=== PATIENT | male | born 1995 | race Caucasian/White ===

== ENCOUNTER 2019-03-28 19:49 | Emergency (ER) | payer OTHER ==
[~2019-03-28] VITALS: Ht 177.8 cm; Wt 165.0 kg
[~2019-03-28 19:49] MED LIST: HYDR50CA PO
[2019-03-28] MEDS ORDERED: IV NORMAL SALINE 1,000ML 1,000 ML IV SCH (21:02)
--- NOTE | 2019-03-28 21:13 | PHYS DOC ---
Past History Past Medical History: Anxiety Past Surgical History: Tonsillectomy Smoking: Non-smoker Alcohol Use: None Drug Use: None Adult General Chief Complaint Chief Complaint: ABDOMINAL PAIN HPI HPI Patient is a 23 year old male who presents with complaint of nausea, vomiting, and upper abdominal pain. The patient states that his symptoms at approximately 1900 earlier this evening. Notes that he felt sick to his stomach and had an episode of vomiting. Noted what appeared to be dark red in his vomit. Denies any associated fever. Started having burning upper abdominal pain shortly after vomiting which wanted him to come to the emergency department for further evaluation. Patient states that he has had recurrent upper abdominal pain symptoms over the past several months. Has not followed with a physician for diagnosis of the cause of symptoms but states that he suspects that he may have stomach ulcers. Not currently taking any daily medication but states that he has used Prilosec off and on over the past several months as well as use of antacids as needed. Has not noticed any dark tarry stools. Rates his pain currently is 6 out of 10 on my evaluation. Review of Systems Review of Systems Constitutional: Denies fever or chills [] Eyes: Denies change in visual acuity, redness, or eye pain [] HENT: Denies nasal congestion or sore throat [] Respiratory: Denies cough or shortness of breath [] Cardiovascular: Denies chest pain or edema[] GI: Abdominal pain, nausea, vomiting, hematemesis[] : Denies dysuria or hematuria [] Musculoskeletal: Denies back pain or joint pain [] Integument: Denies rash or skin lesions [] Neurologic: Denies headache, focal weakness or sensory changes [] All other systems were reviewed and found to be within normal limits, except as documented in this note. Current Medications Current Medications Current Medications Medications (Trade) Dose Ordered Sig/Isaías Start Time Stop Time Status Last Admin Dose Admin Famotidine (Pepcid Vial) 20 mg 1X ONCE 03/28/19 21:15 03/28/19 21:16 Multi-Ingredient Mouthwash/Gargle (Gi Cocktail) 20 ml 1X ONCE 03/28/19 21:15 03/28/19 21:16 Ondansetron HCl (Zofran) 4 mg 1X ONCE 03/28/19 21:15 03/28/19 21:16 Sodium Chloride 1,000 ml @ 1,000 mls/hr Q1H 03/28/19 21:02 03/28/19 22:01 Allergies Allergies Allergies Coded Allergies Type Severity Reaction Last Updated Verified No Known Drug Allergies 04/19/14 No Physical Exam Physical Exam Constitutional: Alert, afebrile, appears ill but in no acute distress. [] HENT: Normocephalic, atraumatic, bilateral external ears normal, oropharynx moist, no oral exudates, nose normal. [] Eyes: PERRLA, EOMI, conjunctiva normal, no discharge. [] Neck: Normal range of motion, no tenderness, supple, no stridor. [] Cardiovascular:Heart rate regular rhythm, no murmur [] Lungs & Thorax: Bilateral breath sounds clear to auscultation [] Abdomen: Bowel sounds normal, soft, mild epigastric tenderness to palpation, no guarding or rebound tenderness, no masses, no pulsatile masses. [] Skin: Warm, dry, no erythema, no rash. [] Back: No tenderness, no CVA tenderness. [] Extremities: No tenderness, no cyanosis, no clubbing, ROM intact, no edema. [] Neurologic: Alert and oriented X 3, normal motor function, normal sensory function, no focal deficits noted. [] Current Patient Data Vital Signs Vital Signs Date Time Temp Pulse Resp B/P (MAP) Pulse Ox O2 Delivery O2 Flow Rate FiO2 03/28/19 19:55 98.8 88 20 97 Room Air Lab Results Laboratory Tests Test 03/28/19 20:05 03/28/19 20:25 Urine Collection Type Unknown Urine Color Yellow Urine Clarity Clear Urine pH 7.0 Urine Specific [place] 1.015 Urine Protein Neg Urine Glucose (UA) Neg mg/dL Urine Ketones (Stick) Neg mg/dL Urine Blood Neg Urine Nitrite Neg Urine Bilirubin Neg Urine Urobilinogen Dipstick 0.2 mg/dL Urine Leukocyte Esterase Neg Urine RBC 0 /HPF Urine WBC Occ /HPF Urine Squamous Epithelial Cells Occ /LPF Urine Transitional Epithelial Cells Occ /LPF Urine Bacteria Few /HPF White Blood Count 8.4 x10^3/uL Red Blood Count 5.63 x10^6/uL Hemoglobin 17.2 g/dL Hematocrit 50.0 % Mean Corpuscular Volume 89 fL Mean Corpuscular Hemoglobin 31 pg Mean Corpuscular Hemoglobin Concent 34 g/dL Red Cell Distribution Width 13.1 % Platelet Count 186 x10^3/uL Neutrophils (%) (Auto) 63 % Lymphocytes (%) (Auto) 29 % Monocytes (%) (Auto) 6 % Eosinophils (%) (Auto) 1 % Basophils (%) (Auto) 1 % Neutrophils # (Auto) 5.3 x10^3uL Lymphocytes # (Auto) 2.4 x10^3/uL Monocytes # (Auto) 0.5 x10^3/uL Eosinophils # (Auto) 0.1 x10^3/uL Basophils # (Auto) 0.0 x10^3/uL Sodium Level 143 mmol/L Potassium Level 3.9 mmol/L Chloride Level 105 mmol/L Carbon Dioxide Level 28 mmol/L Anion Gap 10 Blood Urea Nitrogen 9 mg/dL Creatinine 1.0 mg/dL Estimated GFR (Cockcroft-Gault) 94.3 BUN/Creatinine Ratio 9 Glucose Level 113 mg/dL Calcium Level 9.4 mg/dL Total Bilirubin 0.4 mg/dL Aspartate Amino Transf (AST/SGOT) 18 U/L Alanine Aminotransferase (ALT/SGPT) 24 U/L Alkaline Phosphatase 55 U/L Total Protein 7.8 g/dL Albumin 4.1 g/dL Albumin/Globulin Ratio 1.1 Lipase 81 U/L Current Medications Medications (Trade) Dose Ordered Sig/Isaías Route PRN Reason Start Time Stop Time Status Last Admin Dose Admin Sodium Chloride 1,000 ml @ 1,000 mls/hr Q1H IV 03/28/19 21:02 03/28/19 22:01 DC 03/28/19 22:45 Ondansetron HCl (Zofran) 4 mg 1X ONCE IV 03/28/19 21:15 03/28/19 21:16 DC 03/28/19 22:45 Famotidine (Pepcid Vial) 20 mg 1X ONCE IVP 03/28/19 21:15 03/28/19 21:16 DC 03/28/19 22:45 Multi-Ingredient Mouthwash/Gargle (Gi Cocktail) 20 ml 1X ONCE PO 03/28/19 21:15 03/28/19 21:16 DC 03/28/19 22:45 EKG EKG Not performed[] Radiology/Procedures Radiology/Procedures Not performed[] Course & Med Decision Making Course & Med Decision Making Pertinent Labs and Imaging studies reviewed. (See chart for details) Patient was given IV fluids, Pepcid, Zofran, and oral GI cocktail. My evaluation after treatment reveals significant improvement patient's reported symptoms. Blood work is unremarkable at this time. I do suspect the patient has a spectrum of acid reflux disease leading to his recurrent symptoms. Explain that for further workup and diagnosis, the patient will need evaluation by facilities maintenance manager as outpatient. Referred to Dr. Moreno. Advised follow- up with primary doctor in the next 3-5 days for reevaluation. Prescribed Pepcid twice daily and Zofran for outpatient treatment. Advised return to emergency department for any worsening symptoms. Patient was understanding and in agreement with treatment plan. Dragon Disclaimer Dragon Disclaimer This electronic medical record was generated, in whole or in part, using a voice recognition dictation system. Departure Departure: Impression: Primary Impression: Abdominal pain Additional Impression: Nausea & vomiting Disposition: 01 HOME, SELF-CARE Condition: IMPROVED Referrals: [facility] (PCP) ROCÍO MORENO MD Patient Instructions: Abdominal Pain (Nonspecific), Nausea and Vomiting Additional Instructions: Your examination today thankfully shows no evidence of an acute surgical or life-threatening cause of your symptoms. It is suspected that you may suffer from chronic acid reflux or gastritis disease. It is recommended that you follow-up with a facilities maintenance manager to have further testing done in order to diagnose this condition. Follow-up with your primary doctor in the next 3-5 days for reevaluation. Return to the emergency department for any worsening symptoms. Scripts Ondansetron (ONDANSETRON ODT) 4 Mg Tab.rapdis 1 TAB PO Q8HRS PRN for NAUSEA/VOMITING, #16 TAB Prov: LENA RAPP MD 03/28/19 Famotidine (PEPCID) 20 Mg Tablet 1 TAB PO BID, #30 TAB 0 Refills Prov: LENA RAPP MD 03/28/19 Problem Qualifiers Primary Impression: Abdominal pain Abdominal location: epigastric Qualified Codes: R10.13 - Epigastric pain Additional Impression: Nausea & vomiting Vomiting type: unspecified Vomiting Intractability: non-intractable Qualified Codes: R11.2 - Nausea with vomiting, unspecified LENA RAPP MD Mar 28, 2019 21:13
[2019-03-28] MEDS ORDERED: ONDANSETRON PF 4 MG/2 ML VIAL. IV ONE (21:15)
[2019-03-28] MEDS ORDERED: FAMOTIDINE 20 MG/2 ML VIAL IVP ONE (21:15)
[2019-03-28] MEDS ORDERED: LIDO:MAALOX 1:1 20 ML SINGLE DOSE. PO ONE (21:15)
[2019-03-28 21:16] LABS: BASO % 1 % (0-3); EOS # 0.1 x10^3/uL (0.0-0.7); EOS % 1 % (0-3); HEMOGLOBIN 17.2 g/dL (13.0-17.5); LYMPH # 2.4 x10^3/uL (1.0-4.8); LYMPH % 29 % (24-48); MEAN CORPUSCULAR HEMOGLOBIN 31 pg (25-35); MEAN CORPUSCULAR HGB CONC 34 g/dL (31-37); MEAN CORPUSCULAR VOLUME 89 fL (79-100); MONO # 0.5 x10^3/uL (0.0-1.1); MONO % 6 % (0-9); NEUT # 5.3 x10^3uL (1.8-7.7); NEUT % 63 % (31-73); PLATELET COUNT 186 x10^3/uL (140-400); RED BLOOD COUNT 5.63 x10^6/uL (4.30-5.70); RED CELL DISTRIBUTION WIDTH 13.1 % (11.5-14.5); WHITE BLOOD COUNT 8.4 x10^3/uL (4.0-11.0)
[2019-03-28 21:21] LABS: ALBUMIN 4.1 g/dL (3.4-5.0); ALBUMIN/GLOBULIN RATIO 1.1 (1.0-1.7); CALCIUM 9.4 mg/dL (8.5-10.1); GFR 94.3; POTASSIUM 3.9 mmol/L (3.5-5.1); TOTAL BILIRUBIN 0.4 mg/dL (0.2-1.0); TOTAL PROTEIN 7.8 g/dL (6.4-8.2)
[2019-03-28 21:25] LABS: BILIRUBIN,URINE NEG (NEG); CLARITY,URINE CLEAR; COLOR,URINE YELLOW; GLUCOSE,URINE NEG (NEG); NITRITE,URINE NEG (NEG); RBC,URINE 0 /HPF (0-2); UROBILINOGEN,URINE 0.2 mg/dL (0.2 mg/dL); WBC,URINE OCC /HPF (0-4)
[2019-03-28 21:26] LABS: BACTERIA,URINE FEW /HPF (0-FEW); SQUAMOUS EPITHELIAL CELL,UR OCC /LPF
[2019-03-28 22:22] VITALS: BP 121/68
[2019-03-28] MEDS ORDERED: ONDA4TAB12 PO (22:43)
[2019-03-28] MEDS ORDERED: FAMO-63 PO (22:43)
== END 2019-03-28 22:55 | disposition home or self-care (01) ==
LOC: ER 19:49
DX: R11.2 Nausea with vomiting, unspecified (principal); R10.13 Epigastric pain
CPT/HCPCS: 36415; 80053; 81001; 83690; 85025; 96361; 96374; 96375; 99284; J2405; J3490; J7030

== ENCOUNTER 2021-09-10 11:38 | Emergency (ER) | payer OTHER ==
[~2021-09-10] VITALS: Ht 177.8 cm; Wt 91.3 kg
[~2021-09-10 11:38] MED LIST changes: +FAMO-63 PO; +ONDA4TAB12 PO
[2021-09-10] MEDS ORDERED: ONDANSETRON ODT 4 MG TAB.RAPDIS PO ONE (12:15)
[2021-09-10] MEDS ORDERED: KETOROLAC 60 MG/2 ML VIAL. IM ONE (12:15)
[2021-09-10 12:35] VITALS: BP 124/90
[2021-09-10 12:41] LABS: INFLUENZA A PATIENT NEGATIVE (NEGATIVE); INFLUENZA B PATIENT NEGATIVE (NEGATIVE)
[2021-09-10] MEDS ORDERED: ONDA4TAB12 PO (12:52)
--- NOTE | 2021-09-10 13:01 | PHYS DOC ---
Past History Past Medical History: Anxiety (ANALIA ARENAS) Past Surgical History: No Surgical History (ANALIA ARENAS) Smoking: Non-smoker Alcohol Use: None Drug Use: None (ANALIA ARENAS) General Adult EDM: Chief Complaint: COUGH HPI: HPI: Patient is a 25 year old male who presents with headache, body aches and nausea that began today. Patient reports associated photophobia. Patient states he was around someone recently who was sick, but did not have an official diagnosis of anything. He also states that his friend did not have as severe of symptoms. Patient was not vaccinated against COVID-19 nor has he had COVID-19 in the past. Patient denies all other complaints. (ANALIA ARENAS) Review of Systems: Review of Systems: ROS negative or noncontributory except as mentioned in HPI. (ANALIA ARENAS) Current Medications: Current Meds: Current Medications Medications (Trade) Dose Ordered Sig/Isaías Start Time Stop Time Status Last Admin Dose Admin Ketorolac Tromethamine (Toradol Im) 60 mg 1X ONCE 09/10/21 12:15 09/10/21 12:16 DC 09/10/21 12:26 60 MG Ondansetron HCl (Zofran Odt) 4 mg 1X ONCE 09/10/21 12:15 09/10/21 12:16 DC 09/10/21 12:25 4 MG (ANALIA ARENAS) Allergies: Allergies: Allergies Coded Allergies Type Severity Reaction Last Updated Verified No Known Drug Allergies 04/19/14 No (ANALIA ARENAS) Physical Exam: PE: Constitutional: Well developed, well nourished, no acute distress, non-toxic appearance. HENT: Normocephalic, atraumatic, bilateral external ears normal, nose normal. Eyes: EOMI, conjunctiva normal, no discharge. Neck: Normal range of motion, no stridor. Skin: Warm, dry, no erythema, no rash. Extremities: No tenderness, no cyanosis, no clubbing, ROM intact, no edema. Neurologic: Alert and oriented x4, steady and symmetrical upright gait, no focal deficits noted. (ANALIA ARENAS) Current Patient Data: Labs: Laboratory Tests Test 09/10/21 12:03 Influenza Type A (Rapid) Negative (NEGATIVE) Influenza Type B (Rapid) Negative (NEGATIVE) Vital Signs: Vital Signs Date Time Temp Pulse Resp B/P (MAP) Pulse Ox O2 Delivery O2 Flow Rate FiO2 09/10/21 12:35 99.5 105 20 124/90 (101) 100 Room Air (ANALIA ARENAS) Heart Score: C/O Chest Pain: No (ANALIA ARENAS) Course & Med Decision Making: Course & Med Decision Making Pertinent Labs and Imaging studies reviewed. (See chart for details) (ANALIA ARENAS) Dragon Disclaimer: Dragon Disclaimer: This electronic medical record was generated, in whole or in part, using a voice recognition dictation system. (ANALIA ARENAS) Attending Co-Sign The patient was seen and interviewed as well as examined at the bedside. The chart was reviewed. The case was discussed. Agree with the plan of care. (KANDACE NEGRETE DO) Departure Departure: Impression: Primary Impression: COVID-19 virus infection Disposition: HOME / SELF CARE / HOMELESS Condition: STABLE Referrals: PCPSALOMÓN (PCP) Patient Instructions: Viral Syndrome Additional Instructions: Follow the following supportive treatment measures: - Cool mist humidifier with plain water at bedside while you sleep - Zofran (ondansetron) for nausea every 6-8 hours - Alternate ibuprofen and acetaminophen every four hours for body aches/fever/headache If antibiotics were prescribed, take them as directed. You have been tested for or diagnosed with COVID-19 infection. It is an infection caused by a new type of coronavirus. COVID-19 will cause cold-like or mild flu symptoms in most. It can cause more severe symptoms like problems b reathing in some. There is no treatment for COVID-19. The body will clear the infection over time. Self-care will help to ease discomfort. Steps to Take: - Rest as needed. - Choose healthy foods including fruits and vegetables. Drink water throughout the day. - Get plenty of sleep each night. - If you smoke, try to quit. It may ease breathing. - Avoid alcohol. - Keep Others Healthy - The virus can spread to others. Droplets are released every time you sneeze or cough. The droplets can get into the mouth, nose, or eyes of people near you and lead to infection. To lower the chances of spreading COVID-19 to others: Stay at home until your doctor has said it is safe to leave. If you tested positive this will mean staying isolated until both of the following are true: - At least 10 days have passed since the start of illness. - You are free of fever for at least 72 hours without the use of medicine. During this time: - Avoid public areas, events, or transportation. Do not return to work or school until your doctor has said it is safe to do so. - Call ahead if you need to go to a medical center. Let them know you may have COVID-19. It will help them guide you where to go. They may also ask you to wear a facemask when you come to the office. - If you call for emergency medical services, let them know you may have COVID- 19. While at home: - Try to avoid close contact with others. Stay about 6 feet away. - If possible, spend most of your time in a separate room from others. - Use a face mask if you will be in close contact with others such as sharing a room or vehicle. - Have someone wipe down common surfaces in the home. Use household quality control tech raw materials every day on areas like doorknobs, counters, or sinks. - Cough or sneeze into a tissue. Throw the tissue away right after use. If a tissue is not available, cough or sneeze into your elbow. - Wash your hands often. Wash them after sneezing or coughing. Use soap and water and wash or at least 20 seconds. Alcohol based hand ladle cleaner can be used if soap and water is not available. - Do not prepare food for others. Avoid sharing personal items like forks, spoons, or toothbrushes. - Avoid close contact with pets while you are sick. There is no evidence of the virus passing to pets. This is a safety step until more is known about this virus. - Isolation can be frustrating. Social interaction can help. Keep in touch with friends and family through phone and tech options. You can still interact with others in your home, just keep a safe distance of about 6 feet. Follow-up: - Your doctors office will check in with you to see if there are any changes in your health. - You may be asked to keep track of symptoms to share with them. They will also let you know when you are clear to be in public again. Contact your doctor if your recovery is not going as you expect. Get emergency care if you have problems such as: - Trouble breathing with oxygen saturation <90% - Nonstop chest pain or pressure - Changes in awareness, confusion, or problems waking - Lips or face have bluish color - Worsening of symptoms If you think you have an emergency, call for emergency medical services right away. [facility] Scripts Ondansetron (ONDANSETRON ODT) 4 Mg Tab.rapdis 1 TAB PO PRN Q6-8HRS for N/V, #20 TAB Prov: ANALIA ARENAS 09/10/21 ANALIA ARENAS Sep 10, 2021 13:01 KANDACE NEGRETE DO Sep 10, 2021 16:54
== END 2021-09-10 13:20 | disposition home or self-care (01) ==
LOC: ER 11:38
DX: U07.1 COVID-19 (principal); F41.9 Anxiety disorder, unspecified
CPT/HCPCS: 87428; 96372; 99283; J1885; Q0162; 87426

== ENCOUNTER 2021-11-06 11:36 | Emergency (ER) | payer OTHER ==
[~2021-11-06] VITALS: Ht 177.8 cm; Wt 91.6 kg
[2021-11-06] MEDS ORDERED: ASPIRIN CHEWABLE 81 MG TABLET. PO ONE (12:15)
--- NOTE | 2021-11-06 12:19 | EKG ---
[address] [address] Test Date: 2021-11-06 Test Time: 11:47:26 Pat Name: TARUN JENSEN Department: Room: Gender: M Probation Supervisor: EVETTE : 1995 Requested By: DUC RAGLAND Order Number: [id number] Reading MD: Neri Head Measurements Intervals [place] Rate: 91 P: 3 UT: 136 QRS: 20 QRSD: 90 T: 52 QT: 338 QTc: 417 Interpretive Statements SINUS RHYTHM Electronically Signed On 11-07-2021 21:19:27 CDT by Neri Head
--- NOTE | 2021-11-06 12:24 | PHYS DOC ---
Past History Past Medical History: Anxiety Past Surgical History: Tonsillectomy Smoking: Non-smoker Alcohol Use: Occasionally Drug Use: None Social History Narrative: LAST USED LAST NOC General Adult EDM: Chief Complaint: CHEST PAIN HPI: HPI: Patient is a 25-year-old male coming in for chest pressure, shortness of breath, lightheadedness, bilateral hand tingling. Patient states that about 30 minutes ago while he was at work he was sitting down talking to a customer and began to feel lightheaded. Patient states he tried to stand up he made the symptoms worse. Patient states that while walking the emergency department he had worsening chest pressure. Patient has a history of anxiety and asthma as a child. Patient says he has been under increased stress recently and had 2 cigarettes yesterday (normally uses a vape). Patient has a family history of diabetes and heart disease on his mom's side of family, is unsure of the exact nature of heart disease. Review of Systems: Review of Systems: All other systems within normal limits except for as noted in the HPI Allergies: Allergies: Allergies Coded Allergies Type Severity Reaction Last Updated Verified No Known Drug Allergies 11/06/21 No Physical Exam: PE: Constitutional: Well developed, well nourished, no acute distress, non-toxic appearance. [] HENT: Normocephalic, atraumatic, bilateral external ears normal, nose normal. [] Eyes: PERRLA, conjunctiva normal, no discharge. [] Neck: No rigidity, supple, no stridor. [] Cardiovascular: Regular rate and rhythm, brisk cap refill [] Lungs & Thorax: Non labored symmetric respirations, no tachypnea or respiratory distress. Breath sounds auscultated [] Abdomen: Soft, nondistended. Skin: Warm, dry, no erythema, no rash. [] Back: Unremarkable Extremities: No deformities, range of motion grossly intact, no lower extremity edema [] Neurologic: Alert and oriented X 3, no focal deficits noted. [] Psychologic: Affect normal, judgement normal, mood normal. [] Current Patient Data: Vital Signs: Vital Signs Date Time Temp Pulse Resp B/P (MAP) Pulse Ox O2 Delivery O2 Flow Rate FiO2 11/06/21 11:50 98.9 94 15 127/89 (102) 98 Room Air EKG: EKG: Sinus rhythm, heart rate 90 bpm, normal axis, S1, S2, S3 pattern. No STEMI [] Radiology/Procedures: Radiology/Procedures: Patient refusing any imaging. [] Heart Score: C/O Chest Pain: Yes HEART Score for Chest Pain: HEART Score for Chest Pain Response (Comments) Value History Slighlty/Non-Suspicious 0 ECG Normal 0 Age < 45 0 Risk Factors 1 or 2 Risk Factors 1 Troponin < Normal Limit 0 Total 1 Risk Factors: Risk Factors: DM, Current or recent (<one month) smoker, HTN, HLP, family history of CAD, obesity. Risk Scores: Score 0 - 3: 2.5% MACE over next 6 weeks - Discharge Home Score 4 - 6: 20.3% MACE over next 6 weeks - Admit for Clinical Observation Score 7 - 10: 72.7% MACE over next 6 weeks - Early Invasive Strategies Course & Med Decision Making: Course & Med Decision Making Pertinent Labs and Imaging studies reviewed. (See chart for details) [] Dragon Disclaimer: Dragon Disclaimer: This electronic medical record was generated, in whole or in part, using a voice recognition dictation system. Departure Departure: Impression: Primary Impression: Chest pain Disposition: HOME / SELF CARE / HOMELESS Condition: STABLE Referrals: PCP,NO (PCP) Patient Instructions: Chest Pain (Nonspecific) DUC RAGLAND MD Nov 06, 2021 12:24
[2021-11-06] MEDS ORDERED: IOHEXOL 350 MG/ML 100 ML VIAL. IV ONE (12:45)
[2021-11-06 13:17] LABS: BASO % 0 % (0-3); EOS # 0.1 x10^3/uL (0.0-0.7); EOS % 1 % (0-3); HEMATOCRIT 45.9 % (39.0-53.0); HEMOGLOBIN 15.6 g/dL (13.0-17.5); LYMPH # 1.8 x10^3/uL (1.0-4.8); LYMPH % 23 % (24-48); MEAN CORPUSCULAR HEMOGLOBIN 30 pg (25-35); MEAN CORPUSCULAR HGB CONC 34 g/dL (31-37); MEAN CORPUSCULAR VOLUME 88 fL (79-100); MONO # 0.5 x10^3/uL (0.0-1.1); MONO % 6 % (0-9); NEUT # 5.7 x10^3uL (1.8-7.7); NEUT % 70 % (31-73); PLATELET COUNT 185 x10^3/uL (140-400); RED CELL DISTRIBUTION WIDTH 12.8 % (11.5-14.5); WHITE BLOOD COUNT 8.1 x10^3/uL (4.0-11.0)
[2021-11-06 13:18] LABS: CREATININE 0.8 mg/dL (0.7-1.3); GFR 119.8; POTASSIUM 4.2 mmol/L (3.5-5.1)
[2021-11-06 13:32] LABS: ALBUMIN 3.7 g/dL (3.4-5.0); ALBUMIN/GLOBULIN RATIO 1.2 (1.0-1.7); TOTAL BILIRUBIN 0.4 mg/dL (0.2-1.0); TOTAL PROTEIN 6.8 g/dL (6.4-8.2)
[2021-11-06 13:35] LABS: BACTERIA,URINE 0 /HPF (0-FEW); CLARITY,URINE CLEAR; COLOR,URINE YELLOW; GLUCOSE,URINE NEG (NEG); NITRITE,URINE NEG (NEG); RBC,URINE 0 /HPF (0-2); UROBILINOGEN,URINE 0.2 mg/dL (0.2 mg/dL); WBC,URINE 0 /HPF (0-4)
[2021-11-06 15:26] VITALS: BP 118/69
[2021-11-06 15:47] LABS: AMPHETAMINE/METHAMPHETAMINE NEG (NEG); BARBITURATES NEG (NEG); BENZODIAZEPINES NEG (NEG); CANNABINOIDS POS (NEG); COCAINE NEG (NEG); METHADONE NEG (NEG); OPIATES NEG (NEG); PHENCYCLIDINE NEG (NEG)
== END 2021-11-06 15:28 | disposition home or self-care (01) ==
LOC: ER 11:36
DX: R07.89 Other chest pain (principal); R06.02 Shortness of breath; R42 Dizziness and giddiness; F41.9 Anxiety disorder, unspecified; J45.909 Unspecified asthma, uncomplicated
CPT/HCPCS: 36415; 80053; 80307; 81001; 83880; 84484; 85025; 85379; 93005; 99285